=== PATIENT | male | born 1980 | race Caucasian/White ===

== ENCOUNTER 2019-12-19 01:07 | Emergency (ER) | payer MEDICAID, SELFPAY ==
[~2019-12-19] VITALS: Ht 175.3 cm; Wt 65.0 kg
[2019-12-19] MEDS ORDERED: ZIPRASIDONE 20 MG INJ IM ONE ×2 (01:19→01:30)
[2019-12-19 01:55] LABS: BASOPHILS % (AUTO) 1 % (0-1); EOSINOPHILS % (AUTO) 0 % (1-7); LYMPHOCYTES % (AUTO) 14 % (22-44); MEAN CORPUSCULAR HEMOGLOBIN 30.5 pg (27.5-34.5); MEAN CORPUSCULAR HGB CONC 34.7 g/dL (33.2-36.2); MEAN PLATELET VOLUME 9.1 fL (7.4-10.4); MONOCYTES % (AUTO) 6 % (2-9); NEUTROPHILS % (AUTO) 80 % (42-75); PLATELET COUNT 250 x10^3/uL (130-400); RED BLOOD COUNT 5.59 x10^6/uL (4.38-5.82); RED CELL DISTRIBUTION WIDTH 13.3 % (9.4-14.8)
[2019-12-19 02:04] LABS: ALBUMIN 4.5 g/dL (3.4-5.0); ANION GAP 11 mmol/L (5-15); CALCIUM 9.8 mg/dL (8.5-10.1); CHLORIDE 107 mmol/L (98-107); SALICYLATE LEVEL 3.5 mg/dL (2.8-20.0)
[2019-12-19 02:05] LABS: CREATININE 1.25 mg/dL (0.7-1.3)
[2019-12-19 02:29] LABS: MD SCAN
--- NOTE | 2019-12-19 03:06 | NUR ---
LATE ENTRY SUMMARY NOTE: THIS PT WAS BIB [facility] AFTER [employer] PLACED PT ON L2K. [employer] AT BEDSIDE AT TIME OF PT ARRIVAL. PT ARRIVED IN 4 POINT RESTRAINTS. PER [employer], PT WAS ACTIVELY TRYING TO RUN INFRONT OF CARS [employer] WAS TRYING TO TALK WITH HIM. THIS WAS THE REASON [employer] WAS CALLED. PT ARRIVED AWAKE, ALERT TO PERSON AND PLACE, REFUSING TO ANSWER QUESTIONS. PT WAS IMMEDIATELY PLACED ON CARDIAC, BP AND O2 MONITORS. PT UNABLE TO RELAX AND WAS BANGING HIS HEAD ON THE GURNEY. SZ PADS PUT IN PLACE. CONTINUAL EDUCATION AND REDIRECTION OFFERED. PT AFFECT UNCHANGED. 2 BAGS OF BELONGINGS PLACED IN LOCKER.
--- NOTE | 2019-12-19 03:30 | NUR ---
PT COMMUNICATED UNDERSTANDING OF USE OF URINAL FOR UA TO BE COLLECTED BY NODDING HEAD.
--- NOTE | 2019-12-19 04:34 | NUR ---
[facility] cannot accept this referral due to inappropriate insurance.
--- NOTE | 2019-12-19 05:14 | NUR ---
CONTINUAL REMINDERS FOR UA GIVEN. PT RETURNS TO SLEEPING WITH SNORING HEARD BEFORE UA CAN BE OBTAINED.
[2019-12-19 06:14] LABS: AMPHETAMINE SCREEN, URINE Positive (Negative); BARBITURATE SCREEN, URINE Negative (Negative); BENZODIAZEPINE SCREEN, URINE Negative (Negative); CANNABINOID SCREEN, URINE Positive (Negative); COCAINE SCREEN, URINE Negative (Negative); METHADONE SCREEN, URINE Negative (Negative); OPIATE SCREEN, URINE Negative (Negative)
--- NOTE | 2019-12-19 06:30 | NUR ---
MT: PSYCH PACKET FAXED TO [facility].
--- NOTE | 2019-12-19 06:58 | NUR ---
BEDSIDE REPORT TO ILENE MENDOZA. PT SLEEPING, RESPIRATIONS EVEN AND UNLABORED, SOHAN.
--- NOTE | 2019-12-19 07:25 | NUR ---
PATIENT ASLEEP IN BED. WILL ORDER HOSPITAL BED. BREAKFAST ORDERED. SITTER OUTSIDE ROOM
[2019-12-19 07:48] VITALS: BP 155/80
--- NOTE | 2019-12-19 08:21 | NUR ---
got patient breakfast, ate all.
--- NOTE | 2019-12-19 10:13 | NUR ---
PATIENT MOVED TO HOSPITAL BED
[2019-12-19] MEDS ORDERED: ARIPIPRAZOLE 10 MG TABLET ONE (11:30)
[2019-12-19] MEDS ORDERED: ARIPIPRAZOLE 10 MG TABLET PO SCH (11:30)
--- NOTE | 2019-12-19 11:52 | NUR ---
patient ate all of lunch. otherwise sleeping. cooperative
--- NOTE | 2019-12-19 12:41 | NUR ---
PATIENT REPORT TO SOBIA ODOM SBAR
== END 2019-12-19 14:11 | disposition other institution (70) ==
LOC: ED 08:43
DX: F23 Brief psychotic disorder (principal); R45.851 Suicidal ideations; F22 Delusional disorders; R41.82 Altered mental status, unspecified
CPT/HCPCS: 36415; 80048; 80307; 82040; 85025; 99285; J3486

== ENCOUNTER 2019-12-19 12:34 | Inpatient (IN) | payer MEDICAID ==
[~2019-12-19] VITALS: Ht 175.3 cm; Wt 76.6 kg
[2019-12-19] MEDS ORDERED: DOCUSATE 100 MG CAPSULE PO PRN (13:00)
[2019-12-19] MEDS ORDERED: ACETAMINOPHEN 325 MG TABLET PO PRN (13:00)
[2019-12-19] MEDS ORDERED: ONDANSETRON ODT 4 MG PO PRN (13:00)
[2019-12-19] MEDS ORDERED: POLYETHYLENE GLYCOL 17 GM PACKET PO PRN (13:00)
[2019-12-19] MEDS ORDERED: BISACODYL 10 MG SUPP PR PRN (13:00)
[2019-12-19 15:39] VITALS: BP 133/77
[2019-12-19] MEDS: DIPHENHYDRAMINE 50 MG CAPSULE PO PRN (15:39)
[2019-12-19] MEDS: HALOPERIDOL 5 MG TABLET PO PRN (15:39)
[2019-12-19] MEDS: LORazepam 1MG TABLET PO PRN (15:41)
[2019-12-19] MEDS ORDERED: NICOTINE 21 MG/24 HR PATCH.TD24 TD ONE (18:00)
[2019-12-19] MEDS ORDERED: POTASSIUM CHLORIDE 20 MEQ TAB.ER.PRT PO ONE (18:00)
[2019-12-20 06:21] LABS: CHOL/HDL RATIO 2.4; FREE T4 (FREE THYROXINE) 1.14 ng/dL (0.76-1.46); LDL/HDL RATIO 1.1 (0.5-3.0)
[2019-12-20 07:17] VITALS: BP 99/62
[2019-12-20] MEDS: NICOTINE 21 MG/24 HR PATCH.TD24 TD SCH (09:44)
[2019-12-21 07:22] VITALS: BP 104/60
[2019-12-21] MEDS: NICOTINE 21 MG/24 HR PATCH.TD24 TD SCH (08:37)
[2019-12-21] MEDS: LORazepam 1MG TABLET PO PRN (08:42)
[2019-12-21] MEDS ORDERED: DIVA500T2 PO ×2 (17:58→18:00)
[2019-12-21] MEDS ORDERED: OXCA300T3 PO (17:58)
[2019-12-21] MEDS ORDERED: ARIP10TA33 PO (17:58)
[2019-12-21] MEDS ORDERED: GABA600T7 PO (17:59)
[2019-12-21 18:42] VITALS: BP 138/81
[2019-12-21] MEDS: OLANZAPINE 5 MG TABLET PO SCH (20:09)
[2019-12-21] MEDS: GABAPENTIN 400 MG CAPSULE PO SCH (20:09)
[2019-12-21] MEDS: DIVALPROEX 500 MG TABLET.DR PO SCH (20:09)
[2019-12-22 07:26] VITALS: BP 104/66
[2019-12-22] MEDS: GABAPENTIN 400 MG CAPSULE PO SCH ×3 (08:10→20:16)
[2019-12-22] MEDS: OLANZAPINE 5 MG TABLET PO SCH ×2 (08:10→20:16)
[2019-12-22] MEDS: NICOTINE 21 MG/24 HR PATCH.TD24 TD SCH (08:11)
[2019-12-22] MEDS ORDERED: ARIPIPRAZOLE 10 MG TABLET PO SCH (09:00)
[2019-12-22 13:35] LABS: MICROSCOPIC NOT IND
[2019-12-22] MEDS: LORazepam 1MG TABLET PO PRN (16:00)
[2019-12-22 19:58] VITALS: BP 122/76
[2019-12-22] MEDS: DIVALPROEX 500 MG TABLET.DR PO SCH (20:16)
[2019-12-23 07:00] VITALS: BP 123/82
[2019-12-23] MEDS: GABAPENTIN 400 MG CAPSULE PO SCH ×3 (08:01→20:34)
[2019-12-23] MEDS: NICOTINE 21 MG/24 HR PATCH.TD24 TD SCH (08:02)
[2019-12-23] MEDS: OLANZAPINE 5 MG TABLET PO SCH ×2 (08:02→20:34)
[2019-12-23] MEDS: LORazepam 1MG TABLET PO PRN (08:14)
[2019-12-23 19:28] VITALS: BP 113/71
[2019-12-23] MEDS: DIVALPROEX 500 MG TABLET.DR PO SCH (20:34)
[2019-12-24 07:03] VITALS: BP 103/59
[2019-12-24] MEDS: GABAPENTIN 400 MG CAPSULE PO SCH ×2 (07:53→16:11)
[2019-12-24] MEDS: NICOTINE 21 MG/24 HR PATCH.TD24 TD SCH (07:53)
[2019-12-24] MEDS: OLANZAPINE 5 MG TABLET PO SCH (07:53)
[2019-12-24] MEDS: DIPHENHYDRAMINE 50 MG CAPSULE PO PRN (14:12)
[2019-12-24] MEDS: HALOPERIDOL 5 MG TABLET PO PRN (14:12)
[2019-12-24] MEDS: LORazepam 1MG TABLET PO PRN (14:12)
[2019-12-24] MEDS ORDERED: OXCA300T3 PO (16:14)
[2019-12-24] MEDS ORDERED: DIVA-61 PO (16:14)
[2019-12-24] MEDS ORDERED: NICO-487 TD (16:14)
[2019-12-24] MEDS ORDERED: OLAN5TAB9 PO (16:14)
== END 2019-12-24 16:00 | disposition home or self-care (01) | DRG 885 ==
LOC: 3E 14:00
PROVIDERS: ADMIT Psychiatry & Neurology Psychosomatic Medicine; ATTEND Psychiatry & Neurology Psychosomatic Medicine
DX: F25.0 Schizoaffective disorder, bipolar type (principal); F15.20 Other stimulant dependence, uncomplicated; F17.210 Nicotine dependence, cigarettes, uncomplicated; E87.6 Hypokalemia; E86.0 Dehydration; D72.829 Elevated white blood cell count, unspecified; G89.29 Other chronic pain; I10 Essential (primary) hypertension; Z79.899 Other long term (current) drug therapy; Z91.19 Patient's noncompliance with other medical treatment and regimen
CPT/HCPCS: 36415; 71045; 80061; 81003; 84439; 84443; 93005